=== PATIENT | female | born 1930 | race Caucasian/White ===

== ENCOUNTER 2016-10-12 09:19 | Emergency (ER) | payer OTHER ==
[2016-10-12 09:26] VITALS: BMI 21.2
[2016-10-12] MEDS ORDERED: KETOROLAC TROMETHAMINE 30 MG/1 ML VIAL IVPUSH ONE (09:59)
--- NOTE | 2016-10-12 10:05 | PDOC ---
History of Present Illness - General History Source: Patient Exam Limitations: No Limitations - History of Present Illness Initial Comments: 10/12/16 10:09 The patient is a 86 year old female, son at bedside, with a significant past medical history of HTN, HLD who presents to the emergency department with R flank pain for the past 3 days. The patient describes the pain as sharp, intermittent, nonradiating and exacerbated with movement. Patient denies any trauma to the area or recent falls. Patient reports to taking Tylenol for pain however denies any relief. She denies chest pain, headache or dizziness. She denies fever, chills, nausea, vomit, diarrhea, constipation or abdominal pain. She denies dysuria, frequency, urgency or hematuria. Allergies: Penicillin Past surgical history: Hysterectomy, Cataract surgery Social history: Former smoker (40 yrs ago) PCP: Dr. Ventura <Sophy Goodrich - Last Filed: 10/12/16 14:38> - General History Source: Patient, Family, Old Records Exam Limitations: No Limitations <Dang Sanchez - Last Filed: 10/12/16 16:24> - General Chief Complaint: Pain Stated Complaint: BACK PAIN Time Seen by Provider: 10/12/16 09:38 Past History <Sophy Goodrich - Last Filed: 10/12/16 14:38> - Past Medical History HTN: Yes Hypercholesterolemia: Yes - Psycho/Social/Smoking Cessation Hx Suicidal Ideation: No Smoking History: Never smoked Information on smoking cessation initiated: No <Dang Sanchez - Last Filed: 10/12/16 16:24> - Past Medical History Allergies/Adverse Reactions: Allergies Allergy/AdvReac Type Severity Reaction Status Date / Time No Known Allergies Allergy Verified 10/12/16 09:26 Home Medications: Ambulatory Orders Cyclobenzaprine HCl [Flexeril 10 mg] 5 mg PO BID PRN #1 tablet 10/12/16 Ibuprofen 800 mg PO QID #30 tablet 10/12/16 Oxycodone HCl/Acetaminophen [Percocet 5-325 mg Tablet] 1 tab PO Q4H #5 tablet MDD 4 10/12/16 Review of Systems - Review of Systems Able to Perform ROS?: Yes Comments:: 10/12/16 10:10 CONSTITUTIONAL: Absent: fever, no chills, no fatigue EYES: Absent: visual changes ENT: Absent: ear pain, no sore throat CARDIOVASCULAR: Absent: chest pain, no palpitations RESPIRATORY: Absent: cough, no SOB GI: Absent: abdominal pain, no nausea, no vomiting, no constipation, no diarrhea GENITOURINARY: Absent: dysuria, no frequency, no hematuria MUSCULOSKELETAL: + back pain. Absent:, no arthralgia, no myalgia SKIN: Absent: rash <KpSophy - Last Filed: 10/12/16 14:38> *Physical Exam - Vital Signs Last Vital Signs Temp Pulse Resp BP Pulse Ox 98 F 82 18 193/81 99 10/12/16 09:21 10/12/16 09:21 10/12/16 09:21 10/12/16 09:21 10/12/16 09:21 - Physical Exam Comments: 10/12/16 10:10 GENERAL: Well-appearing, well-nourished. No apparent distress. HEENT: Normocephalic, atraumatic. PERRL, EOM intact. CARDIOVASCULAR: Normal S1, S2. Regular rate and rhythm. PULMONARY: +Scant wheezing in bilateral upper lung blankenship. ABDOMEN: Soft, non-distended, non-tender. EXTREMITIES: Normal ROM in all four extremities. No gross deformities. SKIN: Warm, dry. No rash NEUROLOGICAL: No focal neurological deficits. <KpSophy - Last Filed: 10/12/16 14:38> - Vital Signs Last Vital Signs Temp Pulse Resp BP Pulse Ox 98 F 82 18 193/81 99 10/12/16 09:21 10/12/16 09:21 10/12/16 09:21 10/12/16 09:21 10/12/16 09:21 <Dang Sanchez - Last Filed: 10/12/16 16:24> ED Treatment Course - LABORATORY CBC & Chemistry Diagram: 10/12/16 10:25 10/12/16 10:25 <Sophy Goodrich - Last Filed: 10/12/16 14:38> - LABORATORY CBC & Chemistry Diagram: 10/12/16 10:25 10/12/16 10:25 - RADIOLOGY Radiology Studies Ordered: Category Date Time Status CHEST PA & LAT [RAD] Stat Radiology 10/12/16 09:59 Ordered <Dang Sanchez - Last Filed: 10/12/16 16:24> Medical Decision Making - Medical Decision Making 10/12/16 12:01 OH Abdomen and Pelvis Impression: Small hiatal hernia Hepatic cysts. Largest cyst measures 2.0 cm in the right lobe and was not seen on prior study. Consider follow-up imaging for confirmation as clinically warranted Large calcified right adrenal hemorrhage unchanged Heterogeneous kidneys but no evidence of hydronephrosis, renal calculi or renal masses Distended cecum filled with retained stool Multiple diverticula of the colon but no evidence of acute diverticulitis Recommend additional imaging as clinically warranted. <Sophy Goodrich - Last Filed: 10/12/16 14:38> - Medical Decision Making 10/12/16 10:02 I is an 86-year-old female with history of hypertension and high cholesterol presents to the emergency department with three-day history of left flank pain that is described as sharp, worse with movement and unrelieved with over-the- counter pain relievers. Differential diagnosis includes but is not limited to: Pneumonia, musculoskeletal pain, pyelonephritis, UTI, electrolyte abnormality, dehydration, toxic/metabolic derangement. Plan: 1. EKG 2. Chest x-ray 3. Labs 4. Urine analysis 5. Pain management 6. Observe and reevaluate 10/12/16 16:21 Addendum: labs were reviewed and are noted in the EMR. CE are negative as is the CT abdomena nd pelvis. Will discharge home, follow-up with PCP withint one week and return to the ED if Sx persist, worsen or new Sx arise. <Dang Sanchez - Last Filed: 10/12/16 16:24> *DC/Admit/Observation/Transfer - Attestations Scribe Attestion: 10/12/16 10:11 Documentation prepared by Sophy Goodrich, acting as anesthesiology medical doctor for Dang Sanchez MD <Sophy Goodrich - Last Filed: 10/12/16 14:38> - Discharge Dispostion Admit: No - Attestations Physician Attestion: 10/12/16 10:04 I, Dr. Dang Sanchez, attest that the scribes documentation that appears above has been prepared under my direction and personally reviewed by me in its entirety. I confirmed that the note above accurately reflects all work, treatment, procedures, and medical decision-making performed by me. <Dang Sanchez - Last Filed: 10/12/16 16:24> Diagnosis at time of Disposition: Back pain - Discharge Dispostion Disposition: HOME Condition at time of disposition: Stable - Prescriptions Prescriptions: Ibuprofen 800 mg PO QID #30 tablet - Referrals Referrals: Fede Ventura MD [Primary Care Provider] - - Patient Instructions Printed Discharge Instructions: DI for Thoracic Back Pain Additional Instructions: You may take percocet-one tablet every 4-6 hours as needed for pain. Flexiril may be taken before bedtime. Both medications may cause drowsiness so please be careful. Please follow-up with your primary care physician and return to the ER if your symptoms persist, worsen or new symptoms arise.
[2016-10-12] MEDS ORDERED: KETOROLAC TROMETHAMINE 30 MG/1 ML VIAL ONE (10:08)
[2016-10-12 10:44] LABS: BASOPHIL 0.8 % (0-2.0); EOSINOPHIL 1.5 % (0-4.5); MCH 32.5 pg (25.7-33.7); MCHC 33.9 g/dl (32.0-36.0); MEAN CELL VOLUME 95.7 fl (80-96); MEAN PLT VOLUME 8.1 fl (7.5-11.1); NEUTROPHILS 69.8 % (42.8-82.8); PLATELET COUNT 185 K/MM3 (134-434); RDW 16.1 % (11.6-15.6); WHITE BLOOD COUNT 7.2 K/mm3 (4.0-10.0)
[2016-10-12 11:02] LABS: ALBUMIN 3.4 g/dl (3.4-5.0); ANION GAP 8 (8-16); BILIRUBIN,TOTAL 0.4 mg/dL (0.2-1.0); CALCIUM 8.5 mg/dL (8.5-10.1); CO2 26 mmol/L (21-32); COCKROFT - GAULT 39.2615; CREATININE 0.9 mg/dL (0.55-1.02); GLUCOSE,RANDOM 91 mg/dL (74-106); SGOT/AST 32 U/L (15-37); SGPT/ALT 25 U/L (12-78); TOT PROT 6.2 g/dl (6.4-8.2)
[2016-10-12 11:05] LABS: ALK PHOS 56 U/L (45-117); TROPONIN I < 0.02 ng/ml (0.00-0.05)
[2016-10-12 11:46] LABS: URINE APPEARANCE CLEAR; URINE BILIRUBIN NEGATIVE (NEGATIVE); URINE COLOR STRAW; URINE GLUCOSE (UA) NEGATIVE (NEGATIVE); URINE KETONE NEGATIVE (NEGATIVE); URINE LEUK ESTERASE NEGATIVE (NEGATIVE); URINE NITRITE NEGATIVE (NEGATIVE); URINE PROTEIN NEGATIVE (NEGATIVE); URINE UROBILINOGEN NEGATIVE E.U./dl (0.2-1.0)
[2016-10-12 11:47] LABS: URINE BLOOD 1+ (NEGATIVE)
[2016-10-12 11:49] LABS: URINE BACTERIA RARE /hpf (NONE SEEN); URINE RBC 3 /hpf (0-3)
[2016-10-12] MEDS ORDERED: OXYCODONE/APAP 5/325MG COMBO TABLET PO ONE (12:26)
[2016-10-12] MEDS ORDERED: OXYCODONE/APAP 5/325MG COMBO TABLET ONE (12:57)
[2016-10-12 15:26] LABS: TROPONIN I < 0.02 ng/ml (0.00-0.05)
[2016-10-12 16:37] VITALS: BP 160/78; PULSE 61; TEMP 97.6
--- NOTE | 2016-10-12 18:10 | EKG ---
Test Reason : Blood Pressure : / mmHG Vent. Rate : 065 BPM Atrial Rate : 065 BPM P-R Int : 154 ms QRS Dur : 078 ms QT Int : 404 ms P-R-T Axes : 063 046 065 degrees QTc Int : 420 ms NORMAL SINUS RHYTHM NORMAL ECG NO PREVIOUS ECGS AVAILABLE Confirmed by HI BANDA, TESFAYE ([id number]) on 10/12/2016 6:10:26 PM Referred By: Confirmed By:TESFAYE DO MD
== END 2016-10-12 16:54 | disposition home or self-care (01) ==
LOC: JER 09:19
PROC: 3E0333Z Introduction of Anti-inflammatory into Peripheral Vein, Percutaneous Approach (ICD-10-PCS; principal; 2016-10-12)
DX: M54.6 Pain in thoracic spine (principal)
CPT/HCPCS: 36415; 71020-TC; 74176-TC; 80053; 81003; 81015; 82550; 82553; 84484; 85025; 93005; 93010; 96374; 99284-25

== ENCOUNTER → 2016-10-17 | Emergency (ER) | payer OTHER ==
[2016-10-17 14:05] VITALS: BMI 20.3
--- NOTE | 2016-10-17 15:25 | PDOC ---
*Physical Exam - Vital Signs Last Vital Signs Temp Pulse Resp BP Pulse Ox 97.9 F 77 20 162/76 100 10/17/16 14:01 10/17/16 14:01 10/17/16 14:01 10/17/16 14:01 10/17/16 14:01 - Physical Exam Comments: 10/17/16 15:25 Pt seen by the Advanced Practice Provider under my direct supervision Pt interviewed and examined Symptoms have completely resolved CT from last evaluation noted, including fecal burden I agree with plan as outlined by the Advanced Practice Provider 10/17/16 16:23 ED Treatment Course - LABORATORY CBC & Chemistry Diagram: 10/17/16 16:59 10/17/16 16:59 *DC/Admit/Observation/Transfer Diagnosis at time of Disposition: Constipation - Discharge Dispostion Disposition: HOME Condition at time of disposition: Good - Prescriptions Prescriptions: Polyethylene Glycol 3350 [Miralax (For Bowel Prep) -] 17 gm PO DAILY #1 bottle - Referrals Referrals: Fede Ventura MD [Primary Care Provider] - - Patient Instructions Printed Discharge Instructions: DI for Constipation Additional Instructions: Please patient increase her ambulation drink plenty of water and add fiber and roughage to diet. Please take MiraLAX as prescribed and may repeat dose in 2 hours if no bowel movement is produced.
--- NOTE | 2016-10-17 16:19 | PDOC ---
History of Present Illness - General Chief Complaint: Pain, Acute Stated Complaint: ABD PAIN Time Seen by Provider: 10/17/16 15:24 History Source: Patient Exam Limitations: No Limitations - History of Present Illness Initial Comments: 10/17/16 16:19 86-year-old female presents the ED with complaints of sudden onset of sharp pain to the right lower quadrant that radiated to her left periumbilical and then to her left upper quadrant within seconds. Patient states the pain is now resolved and states similar situation 2 weeks ago and was seen in the ER with negative CT labs and urine. Patient states also has had bouts of constipation but denies abdominal distention or decreased flatulence. Patient denies fever, chills, dysuria, diarrhea, rash, or GI surgery. Transfer attacks Timing/Duration: reports: gone now Quality: reports: moderate, sharpness Abdominal Pain Onset Location: reports: RLQ Pain Radiation: reports: LUQ, periumbilical Aggravating Factors: improves with: None Alleviating Factors: improves with: None Past History - Past Medical History Allergies/Adverse Reactions: Allergies Allergy/AdvReac Type Severity Reaction Status Date / Time Penicillins Allergy Intermediate Hives Verified 10/17/16 14:01 Home Medications: Ambulatory Orders Cyclobenzaprine HCl [Flexeril 10 mg] 5 mg PO BID PRN #1 tablet 10/12/16 Ibuprofen 800 mg PO QID #30 tablet 10/12/16 Oxycodone HCl/Acetaminophen [Percocet 5-325 mg Tablet] 1 tab PO Q4H #5 tablet MDD 4 10/12/16 Polyethylene Glycol 3350 [Miralax (For Bowel Prep) -] 17 gm PO DAILY #1 bottle 10/17/16 HTN: Yes Hypercholesterolemia: Yes - Psycho/Social/Smoking Cessation Hx Suicidal Ideation: No Smoking History: Former smoker Have you smoked in the past 12 months: No Information on smoking cessation initiated: No Patient Lives Alone: No Lives with/in: son Abd/GI Specific PMHX - Complaint Specific PMHX Diverticulitis: No Gall Bladder Disease: No GERD: No Review of Systems - Review of Systems Able to Perform ROS?: Yes Constitutional: No: Symptoms Reported HEENTM: No: Symptoms Reported Respiratory: No: Symptoms reported Cardiac (ROS): No: Symptoms Reported ABD/GI: Yes: Constipated, Other (sharp and intermittent) : No: Symptoms Reported Musculoskeletal: No: Symptoms Reported Integumentary: No: Symptoms Reported Neurological: No: Symptoms reported Hematologic/Lymphatic: No: Symptoms Reported *Physical Exam - Vital Signs Last Vital Signs Temp Pulse Resp BP Pulse Ox 97.9 F 77 20 162/76 100 10/17/16 14:01 10/17/16 14:01 10/17/16 14:01 10/17/16 14:01 10/17/16 14:01 - Physical Exam General Appearance: Yes: Nourished, Appropriately Dressed. No: Apparent Distress Respiratory/Chest: positive: Lungs Clear, Normal Breath Sounds. negative: Respiratory Distress, Accessory Muscle Use Cardiovascular: positive: Regular Rhythm, Regular Rate. negative: Murmur Gastrointestinal/Abdominal: positive: Normal Bowel Sounds, Soft, Tenderness ( mild right suprapubic. right flank). negative: Distended, Guarding, Rebound, Hernia, Mass Musculoskeletal: negative: CVA Tenderness Extremity: positive: Normal Capillary Refill. negative: Pedal Edema Integumentary: positive: Normal Color, Warm, Moist. negative: Rash Neurologic: positive: Motor Strength 5/5 (ambulatory) ED Treatment Course - LABORATORY CBC & Chemistry Diagram: 10/17/16 16:59 10/17/16 16:59 Medical Decision Making - Medical Decision Making 10/17/16 16:14 Patient with sudden onset of right lower quadrant pain that radiated to her left upper quadrant within seconds and resolve within minutes. Patient seen here on the for similar symptoms. Labs and imaging reviewed. CT done on October 12 shows mild retention of fecal filled with retained stool. Multiple diverticuli without noted diverticulitis. There is no evidence of bowel obstruction no inflammatory changes of the appendix her colon. There is no fluid collection identified. Patient will be ordered for CBC, comp, urine and KUB. 10/17/16 18:33 Laboratory Tests 10/17/16 16:59 WBC 6.9 Hgb 10.8 Hct 32.4 Plt Count 216 Neutrophils % 76.9 X-ray shows moderate amount of fecal residue in the colon suggest of constipation. An air-filled nondilated small bowel loops in the mid abdomen that may represent an ileus. Patient will be discharged home with MiraLAX and recommendations to follow-up with her PCP. 10/17/16 18:40 Urine will be resent since labs states did not receive specimen. Patient does not need to wait for the results as she has no fever, white count or complaints of urinary discomfort and will be called if positive. 10/17/16 18:51 Laboratory Tests 10/17/16 16:59 Sodium 141 Potassium 4.6 Chloride 107 Carbon Dioxide 25 Anion Gap 9 BUN 23 H Creatinine 1.0 Creat Clearance w eGFR 52.69 Random Glucose 97 Calcium 8.7 Total Bilirubin 0.2 D AST 27 ALT 22 Alkaline Phosphatase 50 Albumin 3.2 L 10/19/16 11:38 Laboratory Tests 10/17/16 17:16 Urine Ketones 1+ H Urine Nitrite Negative Ur Leukocyte Esterase Negative *DC/Admit/Observation/Transfer Diagnosis at time of Disposition: Constipation Qualifiers: Constipation type: unspecified constipation type Qualified Code(s): K59.00 - Constipation, unspecified - Discharge Dispostion Disposition: HOME Condition at time of disposition: Good - Prescriptions Prescriptions: Polyethylene Glycol 3350 [Miralax (For Bowel Prep) -] 17 gm PO DAILY #1 bottle - Referrals Referrals: Fede Ventura MD [Primary Care Provider] - - Patient Instructions Printed Discharge Instructions: DI for Constipation Additional Instructions: Please patient increase her ambulation drink plenty of water and add fiber and roughage to diet. Please take MiraLAX as prescribed and may repeat dose in 2 hours if no bowel movement is produced.
[2016-10-17 17:25] LABS: BASOPHIL 0.6 % (0-2.0); EOSINOPHIL 0.5 % (0-4.5); MCH 31.8 pg (25.7-33.7); MCHC 33.4 g/dl (32.0-36.0); MEAN CELL VOLUME 95.2 fl (80-96); MEAN PLT VOLUME 8.1 fl (7.5-11.1); NEUTROPHILS 76.9 % (42.8-82.8); PLATELET COUNT 216 K/MM3 (134-434); WHITE BLOOD COUNT 6.9 K/mm3 (4.0-10.0)
[2016-10-17 17:49] LABS: ALBUMIN 3.2 g/dl (3.4-5.0); BILIRUBIN,TOTAL 0.2 mg/dL (0.2-1.0); CALCIUM 8.7 mg/dL (8.5-10.1); COCKROFT - GAULT 33.864; TOT PROT 6.1 g/dl (6.4-8.2)
[2016-10-17 18:53] VITALS: BP 189/93; PULSE 73; TEMP 98.2
[2016-10-17 19:08] LABS: URINE APPEARANCE CLEAR; URINE BILIRUBIN NEGATIVE (NEGATIVE); URINE BLOOD NEGATIVE (NEGATIVE); URINE COLOR YELLOW; URINE GLUCOSE (UA) NEGATIVE (NEGATIVE); URINE KETONE 1+ (NEGATIVE); URINE LEUK ESTERASE NEGATIVE (NEGATIVE); URINE NITRITE NEGATIVE (NEGATIVE); URINE PROTEIN NEGATIVE (NEGATIVE); URINE UROBILINOGEN NEGATIVE E.U./dl (0.2-1.0)
== END | disposition home or self-care (01) ==
LOC: JER 13:52
DX: K59.00 Constipation, unspecified (principal); I10 Essential (primary) hypertension; E78.00 Pure hypercholesterolemia, unspecified
CPT/HCPCS: 36415; 74000-TC; 80053; 81003; 85025; 99283-25